=== PATIENT | male | born 1975 | race Caucasian/White ===

== ENCOUNTER 2018-04-18 11:04 | Emergency (ER) | payer OTHER ==
[~2018-04-18] VITALS: Ht 188 cm; Wt 106.8 kg
[2018-04-18] MEDS ORDERED: LISI-662 PO (11:26)
[2018-04-18] MEDS ORDERED: DIAZEPAM 5 MG TABLET PO ONE (12:15)
[2018-04-18] MEDS ORDERED: SODIUM CHLORIDE 0.9% 1,000 ML IV ONE (12:15)
[2018-04-18] MEDS ORDERED: ONDANSETRON HCL 4 MG/2 ML VIAL IVP ONE ×3 (12:45→20:00)
[2018-04-18 13:51] LABS: BASOPHILS % (AUTO) 1.1 % (0.0-2.0); EOSINOPHILS % (AUTO) 0.1 % (1.0-6.0); HEMATOCRIT 50.3 % (41-53); HEMOGLOBIN 17.5 g/dL (13.5-17.5); LYMPHOCYTES # (AUTO) 5.9 K/uL (1.0-4.8); LYMPHOCYTES % (AUTO) 30.2 % (22.0-44.0); MEAN CORPUSCULAR HEMOGLOBIN 34.9 pg (26.0-34.0); MEAN CORPUSCULAR HGB CONC 34.8 G/dL (31.0-37.0); MEAN CORPUSCULAR VOLUME 100 fL (80-100); MONOCYTES # (AUTO) 1.6 K/uL (0.1-1.0); MONOCYTES % (AUTO) 7.9 % (2.0-9.0); NEUTROPHILS # (AUTO) 11.9 K/uL (1.8-7.7); NEUTROPHILS % (AUTO) 60.7 % (40.0-70.0); PLATELET COUNT (AUTO) 152 K/uL (150-450); RED BLOOD CELL COUNT(AUTO) 5.01 MIL/uL (4.50-5.90); RED CELL DISTRIBUTION WIDTH 12.9 % (11.5-14.5)
[2018-04-18 14:08] LABS: ALANINE AMINOTRANSFERASE 152 U/L (12-78); ALBUMIN 4.4 g/dL (3.4-5.0); ALKALINE PHOSPHATASE 165 U/L (46-116); ANION GAP 18 mmol/L (8-16); ASPARTATE AMINOTRANSFERASE 107 U/L (15-37); BILIRUBIN,TOTAL 0.9 mg/dL (0.1-1.0); CALCIUM, TOTAL 9.6 mg/dL (8.8-10.5); CARBON DIOXIDE 23 mmol/L (22-29); CHLORIDE 95 mmol/L (98-107); CREATININE 0.99 mg/dL (0.60-1.30); GLOMERULAR FILTR. RATE CALC > 60 mL/min (>60); GLUCOSE,RANDOM 145 mg/dL (70-110); SODIUM SERUM 136 mmol/L (136-145); TOTAL PROTEIN, SERUM 8.6 g/dL (6.4-8.2); UREA NITROGEN, BLOOD 5 mg/dL (7-18)
[2018-04-18 14:11] LABS: POTASSIUM 2.9 mmol/L (3.5-5.1)
[2018-04-18] MEDS ORDERED: LORazepam 2 MG/ML VIAL IVP ONE (15:00)
[2018-04-18] MEDS: POTASSIUM CHL 10 MEQ/WATER 50 ML IV SCH ×2 (15:58→17:36)
[2018-04-18 20:03] VITALS: BP 160/84
== END 2018-04-18 20:06 | disposition short-term general hospital (02) ==
LOC: EMS 11:06
DX: F10.239 Alcohol dependence with withdrawal, unspecified (principal); I10 Essential (primary) hypertension; Y90.4 Blood alcohol level of 80-99 mg/100 ml
CPT/HCPCS: 36415; 71045; 74176; 80053; 85025; 96374; 96375; 96376; 99285; G0480; J2060; J2405; J3480; J7030